=== PATIENT | female | born 1985 | race African-American/Black ===

== ENCOUNTER 2019-04-12 22:57 | Emergency (ER) | payer MEDICAID, OTHER ==
[~2019-04-12] VITALS: Ht 170.2 cm; Wt 104.3 kg
[~2019-04-12 22:57] MED LIST: BACTRIM-DS1 EA ORAL; BENTYL10 MG ORAL; CIPROFLOXACIN500 M2 ORAL; DIFLUCAN100 MG ORAL; LEVOFLOXACIN500 MG ORAL; NKM
--- NOTE | 2019-04-12 23:54 | NUR ---
ED Nurse Note: Pt waked in c/o LT ankle pain on 04/06 around 1400. Pt stated she was walking downstairs and fell; pt ankle rolled inwards. Pain 04/06 sharp aching pain. Pt also complains of RT side of lower back to feet pain; pain is intermittent and lasts 60 mins- no relation to fall
--- NOTE | 2019-04-13 | Emergency Room Report ---
History of Present Illness General Chief Complaint: Lower Extremity Injury Source: Patient Present Illness HPI Disclaimer: Please note that this report is being documented using DRAGON technology. This can lead to erroneous entry secondary to incorrect interpretation by the dictating instrument. HPI: This a 33-year-old female presenting for evaluation of left ankle and foot pain. The patient states 2 to 3 days ago she missed the last step and rolled her left ankle outward. There is no fall, no head injury and no other other injuries is obtained. She is complaining of pain and swelling on the left ankle and over the left foot. She is able to bear weight though it is painful. Notes mild swelling but no skin breakdown. Denies any numbness or tingling or weakness. No injury to the knee or hip. She has noted intermittent right- sided back pain for several months but this is been unchanged. No prior history of surgery to the left ankle or foot. No other complaints at this time. PMH: Denies PSH: Denies Allergies: Denies Social Hx: Denies Allergies: Coded Allergies: No Known Allergies (Unverified , 09/02/13) Patient History Last Menstrual Period: 04/04/2019 Now: No Nursing Documentation-PMH Hx Cardiac Problems: No Hx Asthma: Yes Hx Cancer: No Hx Gastrointestinal Problems: Yes Hx Neurological Problems: No Review of Systems All Other Systems: negative except mentioned in HPI Physical Exam Vital Signs Date Time Temp Pulse Resp B/P (MAP) Pulse Ox O2 Delivery O2 Flow Rate FiO2 04/12/19 23:44 97.9 70 16 107/80 (89) 96 Room Air General: Awake and alert, no acute distress HEENT: NC/AT. EOMI. Resp: Normal work of breathing Skin: Intact. No abrasions, laceration or rash over the exposed skin MSK: Normal tone and bulk. Moving all extremities. There is mild edema circumferentially around the left ankle and over the midfoot with tenderness over the posterior aspect of the lateral malleolus and over the midfoot. There is no obvious deformity. The patient is able to bear weight. The knee is nontender. Pelvis stable. Neuro: Awake and alert. Mentating appropriately. Sensation of the lower extremities is preserved overall dermatomes. Medical Decision Making Diagnostic Impression: Primary Impression: Ankle sprain Additional Impression: Foot contusion ER Course Is a 33-year female presenting for evaluation of left ankle and foot pain. Must obtain x-rays to rule out acute fracture but there is likely a sprain. Will treat with Motrin and provide support splint as needed. Other X-Ray Diagnostic Results Other X-Ray Diagnostic Results #1: X-Ray ordered: Left ankle # of Views/Limited Vs Complete: Complete Indication: Pain EP Interpretation: Yes Interpretation: no dislocation, no soft tissue swelling, no fractures Impression: No acute disease Electronically Signed by: Electronically signed by Dr. Ja Boyd Other X-Ray Diagnostic Results #2: X-Ray ordered: Left foot # of Views/Limited Vs Complete: Complete Indication: Pain EP Interpretation: Yes Interpretation: no dislocation, no soft tissue swelling, no fractures Impression: No acute disease Electronically Signed by: Electronically signed by Dr. Ja Boyd Reevaluation Time: 00:22 Last Vital Signs Date Time Temp Pulse Resp B/P (MAP) Pulse Ox O2 Delivery O2 Flow Rate FiO2 04/12/19 23:44 97.9 70 16 107/80 (89) 96 Room Air Status: unchanged Reevaluation Impression No evidence of fracture dislocation in the ankle or in the foot. The patient was placed in a Cecil wrap and given crutches. Will discharge on NSAIDs he can return to activity as able. We discussed reasons to return to the emergency department as well as place to follow-up within the area. She understands and agrees with the treatment plan was discharged home. Disposition: HOME, SELF-CARE Condition: Stable Scripts Ibuprofen* (MOTRIN*) 600 Mg Tablet 600 MG ORAL Q8H PRN for For Pain, #30 TAB 0 Refills Prov: Ja Boyd MD 04/13/19 Ja Boyd MD Apr 13, 2019 00:00
[2019-04-13] MEDS ORDERED: IBUPROFEN600 MG ORAL (00:21)
--- NOTE | 2019-04-13 00:26 | NUR ---
ED Nurse Note: ertech at bedside to wrap ankle. provided with crutch. educated on crutch walk; pt able to return demonstrate.
[2019-04-13 00:35] VITALS: BP 107/80
--- NOTE | 2019-04-13 00:35 | NUR ---
ER DISCHARGE NOTE: Patient is cleared to be discharged per ERMD, pt is aox4, on room air, with stable vital signs. pt was given dc and prescription instructions, pt was able to verbalize understanding, pt id band removed. pt is able to ambulate with steady gait. pt took all belongings.
--- NOTE | 2019-04-13 15:06 | Diagnostic Imaging Report ---
Indication: Pain, trauma Technique: 3 views of the left ankle Comparison: none Findings: No acute fractures. No dislocations. Joint spaces are preserved. There is a small plantar spur Impression: Negative
--- NOTE | 2019-04-13 15:08 | Diagnostic Imaging Report ---
Indication: Pain left foot, status post twisting foot one week ago Technique: 3 views left foot Comparison: none Findings: No acute fractures. No dislocations. Joint spaces are preserved. There is a small plantar spur incidentally noted Impression: No acute process
== END 2019-04-13 00:36 | disposition home or self-care (01) ==
LOC: EMR 23:59
DX: S93.402A Sprain of unspecified ligament of left ankle, initial encounter (principal); S90.32XA Contusion of left foot, initial encounter; J45.909 Unspecified asthma, uncomplicated; X50.1XXA Overexertion from prolonged static or awkward postures, initial encounter; Y92.9 Unspecified place or not applicable
CPT/HCPCS: 73610; 73630; Z7502; 99283

== ENCOUNTER 2019-09-13 13:06 | Emergency (ER) | payer MEDICAID ==
[~2019-09-13] VITALS: Ht 170.2 cm; Wt 127.0 kg
[~2019-09-13 13:06] MED LIST changes: +IBUPROFEN600 MG ORAL
[2019-09-13 13:30] VITALS: BP 117/80
--- NOTE | 2019-09-13 13:40 | NUR ---
ED Nurse Note: Pt walked into ED w/ c/o nipple pain 7/10 and LLE pain for 2 days. Pt also dizziness for 2 days. Pt is alertn and orientedx4. Pt denies nausea, vomiting. Pt has been seen by PA. Pt LLE not red or discoloration.
[2019-09-13 14:32] LABS: BILIRUBIN, URINE NEGATIVE (NEGATIVE); COLOR,URINE AMBER; GLUCOSE, URINE (UA) NEGATIVE (NEGATIVE); KETONES,URINE NEGATIVE (NEGATIVE); LEUKOCYTE ESTERASE ,URINE NEGATIVE (NEGATIVE); NITRITE,URINE NEGATIVE (NEGATIVE); PH,URINE 6.5 (4.5-8.0); PROTEIN,URINE NEGATIVE (NEGATIVE); UROBILINOGEN,URINE NORMAL MG/DL (0.0-1.0)
[2019-09-13 14:33] LABS: APPEARANCE,URINE CLEAR
--- NOTE | 2019-09-13 14:52 | Emergency Room Report ---
History of Present Illness General Chief Complaint: General Complaint Source: Patient Present Illness HPI 34-year-old female with no significant past medical history other than sciatic pain here complaining of worsening of sciatic pain as well as 1 week of feeling nauseated however denies any vomiting. Denies abdominal pain, headache and dizziness, diarrhea or constipation. Denies fever and chills, recent travel. Denies any URI symptoms. Is currently not taking any control, and reports her last menstrual period was August 07, 2019. Is sexually active without any protection. Denies any vaginal bleeding or spotting. COVID-19 risk:Travel to affect: No Has patient experienced saucedo: No Allergies: Coded Allergies: No Known Allergies (Unverified , 09/02/13) Patient History Past Medical History: see triage record Past Surgical History: none Pertinent Family History: none Now: No - 08/07/19 Immunizations: UTD Reviewed Nursing Documentation: PMH: Agreed; PSxH: Agreed Nursing Documentation-PMH Hx Cardiac Problems: No Hx Asthma: Yes Hx Cancer: No Hx Gastrointestinal Problems: Yes Hx Neurological Problems: No Review of Systems All Other Systems: negative except mentioned in HPI Physical Exam Vital Signs Date Time Temp Pulse Resp B/P (MAP) Pulse Ox O2 Delivery O2 Flow Rate FiO2 09/13/19 13:22 97.9 75 16 112/79 (90) 97 Room Air 09/13/19 13:30 100 Sp02 EP Interpretation: reviewed, normal General Appearance: no apparent distress, alert, GCS 15, non-toxic Head: normocephalic, atraumatic Eyes: bilateral eye normal inspection, bilateral eye PERRL ENT: hearing grossly normal, normal pharynx, no angioedema, normal voice Neck: full range of motion, supple/symm/no masses Respiratory: chest non-tender, lungs clear, normal breath sounds, no rhonchi, no wheezing, speaking full sentences Cardiovascular #1: regular rate, rhythm, no edema Gastrointestinal: normal bowel sounds, non tender, soft, non-distended, no guarding, no rebound Rectal: deferred Genitourinary: no CVA tenderness Musculoskeletal: back normal, normal range of motion, digits/nails normal, no calf tenderness, pelvis stable, non-tender Neurologic: alert, motor strength/tone normal, oriented x3, sensory intact, responsive, speech normal Psychiatric: judgement/insight normal, memory normal, mood/affect normal, no suicidal/homicidal ideation Skin: no rash Lymphatic: no adenopathy Medical Decision Making PA Attestation All my diagnosis and treatment plans were reviewed ad discussed with my supervising physician Dr. Ramírez Diagnostic Impression: Primary Impression: Additional Impression: Sciatica ER Course 34-year-old female with no significant past medical history other than sciatic pain here complaining of worsening of sciatic pain as well as 1 week of feeling nauseated however denies any vomiting. Denies abdominal pain, headache and dizziness, diarrhea or constipation. Denies fever and chills, recent travel. Denies any URI symptoms. Is currently not taking any control, and reports her last menstrual period was August 07, 2019. Is sexually active without any protection. Denies any vaginal bleeding or spotting. Ddx considered but are not limited to: Ectopic , , nausea vomiting, sciatica, chronic pain Vital signs: are WNL, pt. is afebrile H&PE are most consistent with: Sciatica, incidental finding of asymptomatic ORDERS: UA, urine cx, Diclegis, vitamins, Tylenol, lidocaine patch ED INTERVENTIONS: None required at this time. DISCHARGE: At this time pt. is stable for d/c to home. Will provide printed patient care instructions, and any necessary prescriptions. Care plan and follow up instructions have been discussed with the patient prior to discharge. Patient follow with [facility]PER[facility], at this time no distress no abdominal pain, and no vaginal discharge no further evaluation needed. Last Vital Signs Date Time Temp Pulse Resp B/P (MAP) Pulse Ox O2 Delivery O2 Flow Rate FiO2 09/13/19 13:30 97.9 87 20 117/80 95 Room Air 09/13/19 13:30 100 Disposition: HOME, SELF-CARE Condition: Stable Scripts Vits W-Ca,Fe,Fa(<1MG) ( VITAMINS) 1 Each Tablet 1 EACH PO DAILY, #30 TAB Prov: Tony Harvey 09/13/19 Doxylamine/Pyridoxine Hcl (MARIA T VILLAGOMEZ 10-10 MG TABLET) 1 Each Tablet. 1 EACH PO BID, #20 TAB Prov: DavidmogTony sarabia 20 Lidocaine Patch* (Lidoderm Patch*) 1 Each Adh..patch 1 PATCH TOPIC DAILY, #30 PATCH Patch(es) may remain in place for up to 12 hours in any 24-hour period. Prov: Tony Harvey 09/13/19 Acetaminophen* (TYLENOL EXTRA STRENGTH*) 500 Mg Tablet 500 MG ORAL Q8H PRN for Prn Headache/Temp > 101, #30 TAB 0 Refills Prov: Tony Harvey 09/13/19 Patient Instructions: Back Pain in , Sciatica, [id number] Additional Instructions: You need to follow-up with [facility]CO[facility], take medication as directed, if abdominal pain, vaginal spotting or bleeding return to emergency room Tony Harvey Sep 13, 2019 14:52
[2019-09-13] MEDS ORDERED: DICLEGIS DR 101 EACH PO (14:57)
[2019-09-13] MEDS ORDERED: PRENATAL VITAM1 EACH PO (14:57)
[2019-09-13] MEDS ORDERED: LIDODERM700 M1 TOPIC (14:57)
[2019-09-13] MEDS ORDERED: TYLENOL EXTRA500 MG ORAL (14:57)
[2019-09-13 15:07] VITALS: BP 119/82
--- NOTE | 2019-09-13 15:09 | NUR ---
ED Nurse Note: IV removed w/out complications.
== END 2019-09-13 15:09 | disposition home or self-care (01) ==
LOC: EMR 14:50
DX: O26.90 Pregnancy related conditions, unspecified, unspecified trimester (principal); M54.30 Sciatica, unspecified side
CPT/HCPCS: 81003; 81025; Z7502; 99283